=== PATIENT | male | born 1985 | race Caucasian/White ===

== ENCOUNTER → 2020-10-05 09:26 | Outpatient (CLI) | payer OTHER, SELFPAY | PROVIDERS: Visit Provider Nurse Practitioner | DX: J02.9 Acute pharyngitis, unspecified (principal) | CPT/HCPCS: 87070 ==

== ENCOUNTER 2021-10-17 16:18 | Emergency (ER) | payer OTHER, SELFPAY ==
[2021-10-17 16:25] VITALS: BP 127/75; PULSE 85; RESP 18; TEMP 36.5; O2SAT 99; BMI 23.6
--- NOTE | 2021-10-17 16:56 | DI.US.S_ITS ---
PROCEDURE: US ABDOMEN LIMITED INDICATIONS: RLQ PAIN POST APPENDECTOMY; POSSIBLE ABSCESS TECHNIQUE: Real-time focused scanning was performed of the abdomen, with image documentation. COMPARISON: None. FINDINGS: Focused ultrasound examination of right lower quadrant abdomen shows no fluid collection or discrete soft tissue mass. IMPRESSION: No abnormality is seen in right lower quadrant abdomen. No discrete abscess collection is seen. Dictated by: Charlie Meadows M.D. on 10/17/2021 at 18:25 Approved by: Charlie Meadows M.D. on 10/17/2021 at 18:25
[2021-10-17 17:05] LABS: Add Manual Diff / Slide Review NO; Basophils Absolute Auto 100 /uL (0-100); Basophils Percent Auto 0.4 % (0-2); Eosinophils Absolute Auto 200 /uL (0-450); Eosinophils Percent Auto 1.4 % (2-4); Hematocrit 47.2 % (41-53); Hemoglobin 16.3 g/dL (13.5-17.5); Lymphocytes Absolute Auto 600 /uL (1100-4500); Lymphocytes Percent Auto 4.2 % (25-40); Mean Corpuscular HGB Conc 34.6 % (30-36); Mean Corpuscular Hemoglobin 30.4 PG (26-34); Mean Corpuscular Volume 87.9 fL (80-100); Monocytes Absolute Auto 900 /uL (0-900); Monocytes Percent Auto 6.5 % (3-14); Neutrophils Absolute Auto 12200 /uL (1500-7000); Neutrophils Percent Auto 87.5 % (50-75); Platelet Count 321 X10^3/uL (150-400); Red Blood Cell Count 5.37 X10^6/uL (4.5-5.9); Red Cell Distribution Width 12.8 % (11.6-14.8)
--- NOTE | 2021-10-17 17:10 | ED_ITS ---
HPI - Abdominal Pain <West Harp PA-C - Last Filed: 10/17/21 20:07> General Chief Complaint: Abdominal Pain Stated Complaint: nausea, fatigue, appendix removed on 10/25 Time Seen by Provider: 10/17/21 16:24 History of Present Illness HPI narrative: Patient is a 36-year-old male presenting to the emergency department today for evaluation abdominal pain and nausea. Patient explains that he had an appendectomy performed on 09/27/2021 at [facility] in [place], [place]. He states that the surgery went well and he has been recovering appropriately since that time. He was seen at the walk-in clinic today after he became nauseated this morning any explains he had felt more fatigued. Tenderness to palpation was noted in the right lower quadrant on examination at the walk-in clinic and there was concern for a possible abscess. He explains that he is still feeling slightly nauseous but denies fever, chills, chest pain, cough, shortness of breath, vomiting, diarrhea, constipation, dysuria, hematuria, or any other concerning symptoms. No further concerns were voiced at this time. Related Data Previous Rx's Medication Instructions Recorded ibuprofen 600 mg tablet 600 mg PO Q8H PRN #20 tab 10/02/21 mupirocin 2 % topical ointment 1 applic TOPICAL TID #15 g 10/02/21 ondansetron 4 mg disintegrating 4 mg PO Q6H PRN #30 tab 10/17/21 tablet Allergies Allergy/AdvReac Type Severity Reaction Status Date / Time No Known Drug Allergies Allergy Verified 10/17/21 16:31 Review of Systems <West Harp PA-C - Last Filed: 10/17/21 20:07> Constitutional Constitutional: Denies chills, Reports fatigue, Denies fever(s), Denies frequent falls, Denies lethargy and Denies weakness Eyes Eyes: Denies loss of vision ENT Ears, Nose, Mouth, and Throat: Denies dizziness and Denies neck pain Cardiovascular Cardiovascular: Denies chest pain, Denies irregular heart rhythm, Denies lightheadedness, Denies palpitations, Denies dyspnea, Denies dyspnea on exertion and Denies orthopnea Respiratory Respiratory: Denies cough, Denies dyspnea, Denies dyspnea on exertion and Denies wheezing Gastrointestinal Gastrointestinal: Reports abdominal pain, Denies change in bowel habits, Denies diarrhea, Reports nausea and Denies vomiting Genitourinary Genitourinary: Denies hematuria, Denies flank pain, Denies urinary incontinence and Denies urinary urgency Musculoskeletal Musculoskeletal: Denies back pain, Denies muscle weakness, Denies neck pain, Denies numbness and Denies tingling Integumentary/Breasts Skin/Breast: Denies pruritus, Denies erythema, Denies rash and Denies wounds Neurologic Neurologic: Denies behavioral changes, Denies confusion, Denies dizziness, Denies frequent falls, Denies loss of vision, Denies numbness, Denies tingling and Denies weakness Psychiatric Psychiatric: Denies behavioral changes and Denies confusion Endocrine Endocrine: Reports fatigue and Denies palpitations Allergic/Immunologic Allergic/Immunologic: Denies wheezing Patient History <West Harp PA-C - Last Filed: 10/17/21 20:07> Medical History No significant medical problems Social History Smoking Status: Former smoker Smoking Status: Former smoker tobacco type: cigarettes alcohol intake frequency: 0-2 drinks per day Substance Use Type: does not use Exam <West Harp PA-C - Last Filed: 10/17/21 20:07> Narrative Exam Narrative: GENERAL: 36 year old patient appears stated age. Well-developed patient, in no acute distress. HEAD: Atraumatic. Normocephalic. EYES: Pupils equal round and reactive. Extraocular motions intact. No scleral icterus. No injection or drainage. ENT: Nose without bleeding, purulent drainage. Throat without erythema, tonsillar hypertrophy or exudate. Airway patent. NECK: Trachea midline. Non tender CARDIOVASCULAR: Regular rate and rhythm without murmurs, gallops, or rubs. RESPIRATORY: Clear to auscultation. Breath sounds equal bilaterally. No wheezes, rales, or rhonchi. GASTROINTESTINAL: Abdomen soft, nondistended. Appendectomy surgical scars well healed. No masses appreciated. Mild tenderness to palpation with slight fullness in the right lower quadrant of the abdomen. No shifting fluid wave, no hepatomegaly or splenomegaly. EXTREMITIES: No edema or joint tenderness. BACK: Nontender without deformity or crepitance. No flank tenderness. NEURO: AOx3. SKIN: No rash or erythema of visible areas Initial Vital Signs Initial Vital Signs: Vital Signs Temperature 97.7 F 10/17/21 16:25 Pulse Rate 85 10/17/21 16:25 Respiratory Rate 18 10/17/21 16:25 Blood Pressure 127/75 10/17/21 16:25 Pulse Oximetry 99 10/17/21 16:25 Course <West Harp PA-C - Last Filed: 10/17/21 20:07> Course Course Narrative: CBC, CMP, abdominal ultrasound obtained. Discussed ultrasound results with patient informed him that there were no signs of abscess formation. Informed the patient that he did have an elevated white blood cell count but that his lactate was well within normal limits. Patient states that his nausea has worsened, additional dose of Zofran ordered and CT of abdomen pelvis ordered. Orders Ordered: Discontinued Medications Sodium Chloride (Normal Saline 0.9%) 1,000 mls @ 1,000 mls/hr IV BOLUS ONE Stop: 10/17/21 19:09 Last Infusion: 10/17/21 19:03 Dose: 0 mls/hr Documented by: Admin: 10/17/21 18:25 Dose: 1,000 mls/hr Documented by: PABLO Ondansetron HCl (Ondansetron 4 Mg Odt) 4 mg SL NOW ONE Stop: 10/17/21 18:04 Last Admin: 10/17/21 18:06 Dose: 4 mg Documented by: PABLO Vital Signs Vital signs: Vital Signs - 8 hr 10/17/21 16:25 Temperature 97.7 F Pulse Rate 85 Respiratory Rate 18 Blood Pressure 127/75 Pulse Oximetry 99 MDM - Abdominal Pain <West Harp PA-C - Last Filed: 10/17/21 20:07> Lab Data Result diagrams: 10/17/21 16:57 10/17/21 16:57 Labs: Lab Results 10/17/21 10/17/21 10/17/21 Range/Units 16:57 16:57 17:16 WBC 14.0 H (4.5-11.0) X10^3/uL RBC 5.37 (4.5-5.9) X10^6/uL Hgb 16.3 (13.5-17.5) g/dL Hct 47.2 (41-53) % MCV 87.9 (80-100) fL MCH 30.4 (26-34) PG MCHC 34.6 (30-36) % RDW 12.8 (11.6-14.8) % Plt Count 321 (150-400) X10^3/uL Neut % (Auto) 87.5 H (50-75) % Lymph % (Auto) 4.2 L (25-40) % [place] % (Auto) 6.5 (3-14) % Eos % (Auto) 1.4 L (2-4) % Baso % (Auto) 0.4 (0-2) % Neut # (Auto) 87523 H (4438-9189) /uL Lymph # (Auto) 600 L (6299-3908) /uL [place] # (Auto) 900 (0-900) /uL Eos # (Auto) 200 (0-450) /uL Baso # (Auto) 100 (0-100) /uL Sodium 140 (137-145) mmol/L Potassium 3.8 (3.4-5.1) mmol/L Chloride 102 (98-107) mmol/L Carbon Dioxide 32 (22-32) mmol/L BUN 10 (9-20) mg/dL Creatinine 0.90 (0.66-1.25) mg/dL Estimated GFR > 60.0 (>60) mL/min BUN/Creatinine Ratio 11.1 (6-22) Glucose 90 (70-100) mg/dL Lactate 0.7 (0.7-2.1) mmol/L Calcium 9.4 (8.4-10.2) mg/dL Total Bilirubin 1.0 (0.2-1.3) mg/dL AST 34 (17-59) IU/L ALT 29 (<50) IU/L Alkaline Phosphatase 68 (38-126) U/L Total Protein 8.8 H (6.3-8.2) g/dL Albumin 5.1 H (3.5-5.0) g/dL Globulin 3.7 (1.7-4.1) g/dL Albumin/Globulin Ratio 1.4 (1.0-2.8) Imaging Data US - abdomen: Radiologist's Impression: PROCEDURE: US ABDOMEN LIMITED ? INDICATIONS:? RLQ PAIN POST APPENDECTOMY; POSSIBLE ABSCESS ? TECHNIQUE:? Real-time focused scanning was performed of the abdomen, with image doc umentation.? ? COMPARISON:? None. ? FINDINGS:? Focused ultrasound examination of right lower quadrant abdomen shows no fluid collection or discrete soft tissue mass. ? IMPRESSION:? No abnormality is seen in right lower quadrant abdomen.? No discrete abscess collection is seen. ? ? Dictated by: Charlie Meadows M.D. on 10/17/2021 at 18:25 ? ? Approved by: Charlie Meadows M.D. on 10/17/2021 at 18:25 CT scan - abdomen/pelvis: Radiologist's Impression: PROCEDURE:? CT ABDOMEN PELVIS W CON ? INDICATIONS:? Abdominal pain ? TECHNIQUE:? After the administration of intravenous contrast, axial sections acquired from the lung bases to the pubic symphysis.? Coronal and sagittal reformats were performed.? For radiation dose reduction, the following was used:? automated exposure control, adjustment of mA and/or kV according to patient size.? ? COMPARISON:? [facility], ABDOMEN LIMITED, 10/17/2021, 17:31. ? FINDINGS:? Image quality:? Excellent.? ? Lung bases:? Unremarkable. Heart:? No significant findings. ? ABDOMEN: Liver:? Unremarkable.? ? Gallbladder:? Within normal limits. Biliary ducts:? Unremarkable.? ? Pancreas:? Unremarkable.? ? Spleen:? Unremarkable.? ? Adrenal Glands:? Unremarkable.? ? Kidneys and Ureters:? Unremarkable.? ? ? Stomach and Bowel:? Patient is status post appendectomy.? No evidence of bowel obstruction.? No abnormal bowel wall thickening or mesenteric fat stranding.? No abscess collection.? Peritoneum:? No abnormal intraperitoneal fluid.? No free air.? ? Ventral Wall: ? No hernias.? Abdominal Nodes:? No retroperitoneal or mesenteric adenopathy by size criteria.? Vessels:? Aorta and inferior vena cava are normal in size.? ? PELVIS: Pelvic Organs:? Unremarkable.? ? Bladder:? Unremarkable.? ? Pelvic Nodes: No enlarged lymph nodes.? Miscellaneous: No hernias are seen. ? ? ? Bones:? Bilateral pars defects are noted at L5 level with grade 1 anterolisthesis of L5 on S1.? No suspicious bony lesion.? No acute vertebral body compression fracture. ? ? IMPRESSION:? 1.? Patient is status post appendectomy.? No abscess collection is seen in right lower quadrant abdomen.? No abnormal bowel wall thickening.? No free fluid or free air. 2. Bilateral pars defects at L5 level with grade 1 anterolisthesis of L5 on S1.? ? ? Dictated by: Charlie Meadows M.D. on 10/17/2021 at 18:35 ? ? Approved by: Charlie Meadows M.D. on 10/17/2021 at 18:38 ? MDM Narrative Medical decision making narrative: Differential diagnosis to consider but not limited to abdominal abscess verses stump appendicitis versus gastroenteritis. Discussed results of lab studies and imaging with patient. Informed and the ultrasound imaging did not show signs of an abscess formation. Additionally, CT of the abdomen pelvis did not show signs of acute abnormality. Patient states at this time he is comfortable being discharged home. I informed the patient of the prescribing him a course of medications to help alleviate his nausea, and I stressed the importance of having the patient stay well hydrated with Pedialyte and watered down Gatorade. The he expresses understanding and agrees to plan. Strict return precautions were discussed with the patient prior to discharge. Discharge Plan Departure Patient Disposition: Home Clinical Impression: Abdominal pain, Nausea Instructions: DI for Nausea -- Adult Activity Restrictions/Additional Instructions: *You have been diagnosed with abdominal pain, nausea *What to do: *Please continue to take your regular medications as directed. [X] New medication prescriptions sent to your pharmacy: [facility] [place] - Zofran [ ] New medication written as a paper prescription [ ] No new medications given You were evaluated in the emergency department today for nausea and abdominal pain. Ultrasound and CT imaging of the abdomen did not show signs acute abnormality. I have prescribed you a course medications to help alleviate your nausea (Zofran) and sent the prescription in to your preferred pharmacy ([facility] in [place]). Please follow-up with the primary care provider within the next 2 to 3 days for further evaluation. Do not hesitate to return to the emergency department if you experience fever, worsening abdominal pain, persistent vomiting, worsening dizziness, or any other concerning symptoms. *Please follow up with your primary care provider in 2-3 days, call for an appointment. Let them know you were seen in the Emergency Department and that we ask that you be seen in follow up. We will electronically transmit a record of today's note if your PCP is in our system *If you do not have a primary care provider please contact the [facility] Resource line at [phone]. They will ask some questions about your medical history and help get you set up with a doctor in the community. *Return to Emergency Department if you should have any new, worsening or concerning symptoms, such as fever greater than 101 F, shaking chills, worsening pain, persistent vomiting or other bothersome symptoms. Prescriptions: New ondansetron 4 mg tablet,disintegrating 4 mg PO Q6H PRN (Reason: nausea and vomiting) Qty: 30 0RF No Action mupirocin 2 % ointment 1 applic topical TID Qty: 15 0RF ibuprofen 600 mg tablet 600 mg PO Q8H PRN (Reason: pain) Qty: 20 0RF Referrals: Jerry Khan MD [Primary Care Provider] -
[2021-10-17 17:25] LABS: Alanine Aminotransferase 29 IU/L (<50); Albumin 5.1 g/dL (3.5-5.0); Albumin Globulin Ratio 1.4 (1.0-2.8); Alkaline Phosphatase 68 U/L (38-126); Aspartate Aminotransferase 34 IU/L (17-59); BUN Creatinine Ratio 11.1 (6-22); Blood Urea Nitrogen 10 mg/dL (9-20); Calcium 9.4 mg/dL (8.4-10.2); Carbon Dioxide 32 mmol/L (22-32); Chloride 102 mmol/L (98-107); Estimated Glomerular Filt Rate > 60.0 mL/min (>60); Globulin 3.7 g/dL (1.7-4.1); Glucose 90 mg/dL (70-100); HEMOLYSIS < 15 (0-50); Potassium 3.8 mmol/L (3.4-5.1); Sodium 140 mmol/L (137-145); Total Protein 8.8 g/dL (6.3-8.2)
[2021-10-17 17:30] LABS: Lactate (Lactic Acid) 0.7 mmol/L (0.7-2.1)
[2021-10-17] MEDS: ONDANSETRON 4 MG ODT SL (18:06)
--- NOTE | 2021-10-17 18:07 | DI.CT.S_ITS ---
PROCEDURE: CT ABDOMEN PELVIS W CON INDICATIONS: Abdominal pain TECHNIQUE: After the administration of intravenous contrast, axial sections acquired from the lung bases to the pubic symphysis. Coronal and sagittal reformats were performed. For radiation dose reduction, the following was used: automated exposure control, adjustment of mA and/or kV according to patient size. COMPARISON: [facility], US ABDOMEN LIMITED, 10/17/2021, 17:31. FINDINGS: Image quality: Excellent. Lung bases: Unremarkable. Heart: No significant findings. ABDOMEN: Liver: Unremarkable. Gallbladder: Within normal limits. Biliary ducts: Unremarkable. Pancreas: Unremarkable. Spleen: Unremarkable. Adrenal Glands: Unremarkable. Kidneys and Ureters: Unremarkable. Stomach and Bowel: Patient is status post appendectomy. No evidence of bowel obstruction. No abnormal bowel wall thickening or mesenteric fat stranding. No abscess collection. Peritoneum: No abnormal intraperitoneal fluid. No free air. Ventral Wall: No hernias. Abdominal Nodes: No retroperitoneal or mesenteric adenopathy by size criteria. Vessels: Aorta and inferior vena cava are normal in size. PELVIS: Pelvic Organs: Unremarkable. Bladder: Unremarkable. Pelvic Nodes: No enlarged lymph nodes. Miscellaneous: No hernias are seen. Bones: Bilateral pars defects are noted at L5 level with grade 1 anterolisthesis of L5 on S1. No suspicious bony lesion. No acute vertebral body compression fracture. IMPRESSION: 1. Patient is status post appendectomy. No abscess collection is seen in right lower quadrant abdomen. No abnormal bowel wall thickening. No free fluid or free air. 2. Bilateral pars defects at L5 level with grade 1 anterolisthesis of L5 on S1. Dictated by: Charlie Meadows M.D. on 10/17/2021 at 18:35 Approved by: Charlie Meadows M.D. on 10/17/2021 at 18:38
[2021-10-17] MEDS: SODIUM CHLORIDE 0.9% 1,000 ML 1000 ML IV (18:25)
== END 2021-10-17 19:05 | disposition home or self-care (01) ==
PROVIDERS: Emergency Provider Physician Assistant; PCP Family Medicine
DX: R10.31 Right lower quadrant pain (principal); R11.0 Nausea; Z87.891 Personal history of nicotine dependence
CPT/HCPCS: 74177; 76705; 80053; 83605; 85025; 96360; 99284

== ENCOUNTER → 2023-10-30 16:23 | Outpatient (CLI) | payer OTHER, SELFPAY ==
--- NOTE | 2023-10-30 16:27 | DI.RAD.S_ITS ---
PROCEDURE: XR WRIST LT MIN 3V INDICATIONS: Left wrist injury TECHNIQUE: 4 views of the wrist were acquired. COMPARISON: None. FINDINGS: Bones: No fractures or dislocations. No suspicious bony lesions. Soft tissues: No suspicious soft tissue calcifications. IMPRESSION: No acute osseous abnormality. If pain persists with conservative management, consider repeat x-ray in 10-14 days or cross-sectional imaging. Dictated by: Arturo Alvarado M.D. on 10/31/2023 at 11:12 Approved by: Arturo Alvarado M.D. on 10/31/2023 at 11:13
== END ==
PROVIDERS: PCP Family Medicine; Referring Provider Nurse Practitioner Family; Visit Provider Nurse Practitioner Family
DX: S69.92XA Unspecified injury of left wrist, hand and finger(s), initial encounter (principal); X58.XXXA Exposure to other specified factors, initial encounter
CPT/HCPCS: 73110